=== PATIENT | male | born 1940 | race Caucasian/White ===

== ENCOUNTER 2024-08-03 13:04 | Emergency (ER) | payer MEDICARE ==
[2024-08-03] MEDS ORDERED: Sodium Chloride 0.9% 10 ML Syringe FLUSH PRN (13:14)
[2024-08-03 13:26] LABS: INR 1.2 (0.9-1.1); PROTHROMBIN TIME 11.9 SEC (9.0-11.1)
[2024-08-03 13:37] LABS: ALBUMIN 3.4 g/dL (3.4-5.0); BILIRUBIN TOTAL 0.7 mg/dL (0.2-1.0); CALCIUM 10.3 mg/dL (8.5-10.1); CREATININE 2.62 mg/dL (0.51-1.17); EST CRCL DRUG DOSING (CG) 22.75 mL/min; MAGNESIUM 1.8 mg/dL (1.8-2.4); POTASSIUM,K 5.1 mmol/L (3.5-5.1); PROTEIN TOTAL,TP 6.5 g/dL (6.4-8.2)
[2024-08-03 13:41] LABS: BASOPHILS ABSOLUTE AUTO 0.05 K/uL (0.00-0.20); BASOPHILS PERCENT AUTO 0.4 % (0.0-2.0); EOSINOPHILS ABSOLUTE AUTO 0.61 K/uL (0.00-0.50); EOSINOPHILS PERCENT AUTO 4.9 % (0.0-5.0); HEMATOCRIT 44.1 % (39.0-49.0); HEMOGLOBIN 14.5 g/dL (13.1-16.8); IMMATURE GRAN ABSOLUTE AUTO 0.04 10^3/uL (0.00-0.04); IMMATURE GRAN PERCENT AUTO 0.3 % (0.0-0.4); LYMPHOCYTES ABSOLUTE AUTO 1.47 K/uL (0.50-3.50); LYMPHOCYTES PERCENT AUTO 11.9 % (10.0-50.0); MEAN CORPUSCULAR HEMOGLOBIN 28.7 pg (28.2-33.3); MEAN CORPUSCULAR HGB CONC 32.9 g/dL (31.7-36.0); MEAN CORPUSCULAR VOLUME 87.2 fL (84.0-98.0); MONOCYTES ABSOLUTE AUTO 0.93 K/uL (0.00-1.00); MONOCYTES PERCENT AUTO 7.5 % (2.0-14.0); NEUTROPHILS ABSOLUTE AUTO 9.23 K/uL (1.40-7.00); PLATELET COUNT,PLT 227 K/uL (150-350); RED BLOOD CELL COUNT 5.06 M/uL (4.33-5.41); RED CELL DISTRIBUTION WIDTH 15.8 % (11.2-14.1); WHITE BLOOD CELL COUNT,WBC 12.3 K/uL (4.0-10.2)
[2024-08-03 14:01] LABS: LACTIC ACID 3.4 mmol/L (0.4-2.0)
[2024-08-03 14:09] LABS: O2 DELIVERY DEVICE ROOM AIR
[2024-08-03 14:10] LABS: BASE EXCESS VENOUS -2 mmol/L ((-2)-3); BICARBONATE,VENOUS 23 mmol/L (23-28); O2 SATURATION VENOUS 38 %; PCO2 VENOUS 40 mmHG (41-51); PH,VENOUS 7.37 (7.31-7.41); PO2 VENOUS 23 mmHG
[2024-08-03 14:54] LABS: CORONAVIRUS COVID-19 NAA NEGATIVE (NEGATIVE); INFLUENZA A NAA NEGATIVE (NEGATIVE); INFLUENZA B NAA NEGATIVE (NEGATIVE); RESPIRATORY SYNCYTIAL VIR NAA NEGATIVE (NEGATIVE)
== END 2024-08-03 19:58 | disposition home or self-care (01) ==
LOC: LL.ED 13:04
DX: R53.1 Weakness (principal); I12.9 Hypertensive chronic kidney disease with stage 1 through stage 4 chronic kidney disease, or unspecified chronic kidney disease; N18.30 Chronic kidney disease, stage 3 unspecified; I48.91 Unspecified atrial fibrillation; I25.10 Atherosclerotic heart disease of native coronary artery without angina pectoris; I25.2 Old myocardial infarction; E11.9 Type 2 diabetes mellitus without complications; Z88.8 Allergy status to other drugs, medicaments and biological substances; Z79.899 Other long term (current) drug therapy; Z79.01 Long term (current) use of anticoagulants; Z95.0 Presence of cardiac pacemaker
CPT/HCPCS: 0241U; 36415; 71045; 80053; 82803; 83605; 83735; 83880; 84484; 85025; 85610; 93005; 93010; 99284; 99285

== ENCOUNTER 2024-08-20 17:54 | Inpatient (IN) | payer MEDICARE ==
[2024-08-20] MEDS ORDERED: DULAGLUTIDE SUBCUT SCH (21:45)
[2024-08-20] MEDS ORDERED: Acetaminophen 500 MG Tab PO PRN (21:45)
[2024-08-21] MEDS: Calcitriol 0.25 MCG Cap PO SCH (08:20)
[2024-08-21] MEDS: Apixaban 2.5 MG Tab PO SCH (08:20)
[2024-08-21] MEDS: Ferrous Sulfate 325 MG Tab PO SCH (08:20)
[2024-08-21] MEDS: Allopurinol 100 MG Tab PO SCH (08:20)
[2024-08-21] MEDS: Sertraline 50 MG Tab PO SCH (08:20)
[2024-08-21] MEDS: Cholecalciferol (Vitamin D3) 25 MCG Tab PO SCH (08:20)
[2024-08-21] MEDS ORDERED: Iopamidol 755 Mg/ML 100 ML Bottle IVPUSH ONE (16:00)
[2024-08-21] MEDS: Iopamidol 755 Mg/ML 100 ML Bottle ONE (16:20)
[2024-08-21] MEDS: Sodium Chloride 0.9% 10 ML Syringe FLUSH PRN (18:23)
[2024-08-21] MEDS: Lactated Ringers 1,000 ML IV ONE (18:23)
[2024-08-21] MEDS: Furosemide 40 MG/4 ML VIAL IVPUSH ONE (18:24)
[2024-08-21] MEDS: Mirtazapine 15 MG Tab PO SCH (19:25)
[2024-08-22 07:51] LABS: BASOPHILS ABSOLUTE AUTO 0.05 K/uL (0.00-0.20); BASOPHILS PERCENT AUTO 0.5 % (0.0-2.0); EOSINOPHILS ABSOLUTE AUTO 0.57 K/uL (0.00-0.50); EOSINOPHILS PERCENT AUTO 5.4 % (0.0-5.0); HEMATOCRIT 38.5 % (39.0-49.0); HEMOGLOBIN 12.7 g/dL (13.1-16.8); IMMATURE GRAN ABSOLUTE AUTO 0.03 10^3/uL (0.00-0.04); IMMATURE GRAN PERCENT AUTO 0.3 % (0.0-0.4); LYMPHOCYTES ABSOLUTE AUTO 1.39 K/uL (0.50-3.50); LYMPHOCYTES PERCENT AUTO 13.3 % (10.0-50.0); MEAN CORPUSCULAR HEMOGLOBIN 29.2 pg (28.2-33.3); MEAN CORPUSCULAR VOLUME 88.5 fL (84.0-98.0); MONOCYTES ABSOLUTE AUTO 1.02 K/uL (0.00-1.00); MONOCYTES PERCENT AUTO 9.7 % (2.0-14.0); NEUTROPHILS ABSOLUTE AUTO 7.41 K/uL (1.40-7.00); NEUTROPHILS PERCENT AUTO 70.8 % (45.0-80.0); PLATELET COUNT,PLT 272 K/uL (150-350); RED BLOOD CELL COUNT 4.35 M/uL (4.33-5.41); RED CELL DISTRIBUTION WIDTH 15.9 % (11.2-14.1); WHITE BLOOD CELL COUNT,WBC 10.5 K/uL (4.0-10.2)
[2024-08-22 08:26] LABS: ALANINE AMINOTRANSFERASE,ALT 19 U/L (12-78); ALBUMIN 2.3 g/dL (3.4-5.0); ALKALINE PHOSPHATASE 87 IU/L (46-116); ANION GAP 2.4 meq/L (7-15); ASPARTATE AMNIOTRANSFERASE,AST 22 U/L (15-37); BILIRUBIN TOTAL 0.7 mg/dL (0.2-1.0); BLOOD UREA NITROGEN,BUN 37 mg/dL (7-18); CALCIUM 9.3 mg/dL (8.5-10.1); CARBON DIOXIDE,CO2 29.6 mmol/L (21.0-32.0); CHLORIDE,CL 105 mmol/L (98-107); CREATININE 2.06 mg/dL (0.51-1.17); GLUCOSE RANDOM 117 mg/dL (70-99); PROTEIN TOTAL,TP 5.7 g/dL (6.4-8.2); SODIUM,NA 137 mmol/L (136-145)
[2024-08-22 08:32] LABS: ESTIMATED GFR 31 mL/min (>=60)
[2024-08-22] MEDS: Lactated Ringers 1,000 ML IV SCH (11:41)
[2024-08-22 11:49] LABS: HEMOGLOBIN A1C 6.2 % (4.3-5.7)
[2024-08-22] MEDS: atorvaSTATin 20 MG Tab PO SCH (19:57)
[2024-08-23 07:35] LABS: BASOPHILS ABSOLUTE AUTO 0.04 K/uL (0.00-0.20); BASOPHILS PERCENT AUTO 0.4 % (0.0-2.0); EOSINOPHILS ABSOLUTE AUTO 0.69 K/uL (0.00-0.50); EOSINOPHILS PERCENT AUTO 6.5 % (0.0-5.0); HEMOGLOBIN 12.2 g/dL (13.1-16.8); IMMATURE GRAN ABSOLUTE AUTO 0.04 10^3/uL (0.00-0.04); IMMATURE GRAN PERCENT AUTO 0.4 % (0.0-0.4); LYMPHOCYTES ABSOLUTE AUTO 1.34 K/uL (0.50-3.50); LYMPHOCYTES PERCENT AUTO 12.7 % (10.0-50.0); MEAN CORPUSCULAR HEMOGLOBIN 29.3 pg (28.2-33.3); MEAN CORPUSCULAR VOLUME 88.9 fL (84.0-98.0); MONOCYTES ABSOLUTE AUTO 0.99 K/uL (0.00-1.00); MONOCYTES PERCENT AUTO 9.3 % (2.0-14.0); NEUTROPHILS ABSOLUTE AUTO 7.49 K/uL (1.40-7.00); NEUTROPHILS PERCENT AUTO 70.7 % (45.0-80.0); PLATELET COUNT,PLT 258 K/uL (150-350); RED BLOOD CELL COUNT 4.16 M/uL (4.33-5.41); RED CELL DISTRIBUTION WIDTH 15.9 % (11.2-14.1); WHITE BLOOD CELL COUNT,WBC 10.6 K/uL (4.0-10.2)
[2024-08-23 08:21] LABS: ANION GAP 3.2 meq/L (7-15); BLOOD UREA NITROGEN,BUN 39 mg/dL (7-18); CALCIUM 9.2 mg/dL (8.5-10.1); CARBON DIOXIDE,CO2 28.8 mmol/L (21.0-32.0); CHLORIDE,CL 106 mmol/L (98-107); CREATININE 1.94 mg/dL (0.51-1.17); GLUCOSE RANDOM 111 mg/dL (70-99); POTASSIUM,K 4.9 mmol/L (3.5-5.1); SODIUM,NA 138 mmol/L (136-145)
[2024-08-23 08:25] LABS: ESTIMATED GFR 34 mL/min (>=60)
[2024-08-23] MEDS: Fludrocortisone 0.1 MG Tab PO SCH (08:25)
[2024-08-24 09:47] LABS: % TRANSFERRIN SAT 26.2 % (20.0-50.0)
[2024-08-25] MEDS: Cyanocobalamin (Vitamin B12) 100 MCG Tab PO SCH (07:27)
[2024-08-26] MEDS ORDERED: Lactated Ringers 1,000 ML IV SCH (10:30)
[2024-08-27 22:46] LABS: METANEPHRINE 0.11 nmol/L (0.00-0.49); NORMETANEPHRINE 0.28 nmol/L (0.00-0.89)
== END 2024-08-26 12:25 | DRG 312 ==
LOC: LL.ED 17:54 → LL.MS 22:47
PROVIDERS: ADMIT Physician Assistant; ATTEND Physician Assistant
DX: I95.1 Orthostatic hypotension (principal); I13.0 Hypertensive heart and chronic kidney disease with heart failure and stage 1 through stage 4 chronic kidney disease, or unspecified chronic kidney disease; I50.9 Heart failure, unspecified; N18.30 Chronic kidney disease, stage 3 unspecified; I25.10 Atherosclerotic heart disease of native coronary artery without angina pectoris; F33.9 Major depressive disorder, recurrent, unspecified; I44.2 Atrioventricular block, complete; I48.21 Permanent atrial fibrillation; I50.32 Chronic diastolic (congestive) heart failure; N18.4 Chronic kidney disease, stage 4 (severe); Z66 Do not resuscitate; Z68.30 Body mass index [BMI] 30.0-30.9, adult; R29.6 Repeated falls; E78.00 Pure hypercholesterolemia, unspecified; I27.20 Pulmonary hypertension, unspecified; D63.8 Anemia in other chronic diseases classified elsewhere; E11.22 Type 2 diabetes mellitus with diabetic chronic kidney disease; M10.9 Gout, unspecified; N40.0 Benign prostatic hyperplasia without lower urinary tract symptoms; J30.9 Allergic rhinitis, unspecified; H54.7 Unspecified visual loss; I48.91 Unspecified atrial fibrillation; I25.2 Old myocardial infarction; G47.30 Sleep apnea, unspecified; M19.90 Unspecified osteoarthritis, unspecified site; M79.10 Myalgia, unspecified site; E66.9 Obesity, unspecified; D64.9 Anemia, unspecified; E55.9 Vitamin D deficiency, unspecified; R16.0 Hepatomegaly, not elsewhere classified; Z95.0 Presence of cardiac pacemaker; Z79.899 Other long term (current) drug therapy; Z88.8 Allergy status to other drugs, medicaments and biological substances; Z98.890 Other specified postprocedural states; Z90.49 Acquired absence of other specified parts of digestive tract; Z98.49 Cataract extraction status, unspecified eye; Z79.01 Long term (current) use of anticoagulants; Z85.038 Personal history of other malignant neoplasm of large intestine
CPT/HCPCS: 36415; 71045; 71275; 80048; 80053; 82607; 82746; 82947; 83036; 83540; 83550; 83835; 83880; 84484; 85025; 93005; 93010; 93306; 97110-GP; 97162-GP; 97530-GP; 99284; 99285; A9270-GY; J1938; J7120; Q9967